=== PATIENT | female | born 1975 | race Caucasian/White ===

== ENCOUNTER 2025-02-25 15:54 | Emergency (ER) | payer OTHER, SELFPAY ==
[2025-02-25 16:08] VITALS: BP 191/117; PULSE 120; RESP 16; TEMP 36.2; O2SAT 100; BMI 39.5
--- NOTE | 2025-02-25 16:18 | ED_ITS ---
HPI - General Adult General Chief complaint: Extremity Problem Stated complaint: Back pain, Rt hand numbness Time Seen by Provider: 02/25/25 16:18 Source: patient and RN notes reviewed Limitations: no limitations History of Present Illness HPI narrative: 49-year-old female presents complaining of right upper back, shoulder pain. Patient states she was in the bedroom and moved some sheets and blankets quickly with her right arm and had instant pain and spasming to the muscles in her right upper back. She reports having some intermittent tingling which has since resolved. She was concerned of the symptoms and therefore presents immediately to the emergency department. Patient states her son applied icy hot and massaged her back, reporting that this has offered some relief. She denies any fever or chills. No chest pain. It is worse with palpation and movement. History of similar in the past. She denies any direct trauma. She is otherwise feeling well. Related Data Previous Rx's ?Medication ?Instructions ?Recorded lidocaine 4 % topical patch 1 patch topical BID PRN pa in #15 ea 02/25/25 methocarbamol 750 mg tablet 750 mg PO TID PRN muscle s pasm #20 02/25/25 tabs Allergies Allergy/AdvReac Type Severity Reaction Status Date / Time No Known Allergies Allergy Verified 02/25/25 16:13 Review of Systems Review of Systems: Yes all other systems are reviewed and are negative ENT: Denies neck pain Cardiovascular: Cardiovascular: Denies chest pain Gastrointestinal: Gastrointestinal: Denies abdominal pain Musculoskeletal: Musculoskeletal: Reports back pain, Denies neck pain and Reports tingling Neurologic: Reports tingling PMFSH Social History Social History Smoked in Last 30 Days: No Use of substances other than those prescribed or required for medical reasons: No Advance Directives: No Advance Directives Information Provided: No Physical Exam ED Vital Signs: Vital Signs - 24 hr 02/25/25 16:08 02/25/25 17:01 02/25/25 17:47 Temperature 97.1 F Pulse Rate 120 H 120 H 115 H Respiratory Rate 16 16 15 Blood Pressure 191/117 H 168/108 H 152/104 H Pulse Oximetry 100 99 Oxygen Delivery Method Room Air Room Air 02/25/25 18:45 02/25/25 19:05 Temperature 97.8 F 97.8 F Pulse Rate 115 H 107 H Respiratory Rate 14 14 Blood Pressure 156/111 H 159/108 H Pulse Oximetry 100 100 Oxygen Delivery Method Room Air Room Air BMI result Body Mass Index 39.5 Neck Other: No spinous, paraspinous or paravertebral tenderness. There is mild spasming to the right trapezius muscles. Resp Other: Lung sounds clear throughout Cardio Other: regular, tachycardic Back/Spine/Pelvis Other: boot turner is 5/5 bilaterally. Full range of motion of all joints. Negative empty can test on the right. There is mild tenderness and spasm to the right subscapular muscles. Worse with cross-arm and twisting of the upper body. No lesions or rashes. Course Course Course Narrative: 5:00 p.m. at time of discharge, patient reports continued anxiety. She was previously treated with lorazepam and sertraline however has been off these medications for quite some time. In addition she reports that she had been drinking alcohol last evening and has not had much to eat or drink today. She feels as though she could be hungover as well. I have discussed with the patient about symptomatic treatment for her anxiety, she is agreeable to low dose of lorazepam. She has a ride with her. In addition, dose of Toradol for pain management. She is agreeable as well as reassessment. Patient with improvement after medications. Heart rate improved to approximately 105 as well as blood pressure. Patient states she is feeling much better and more relaxed. In addition, patient states she will go home to drink plenty of fluids. patient expresses understanding of all discharge instructions and has no further questions at this time. Medications Administered Discontinued Medications Generic Name Dose Route Start Last Admin Trade Name Chetanq PRN Reason Stop Dose Admin Ketorolac Tromethamine 30 mg 02/25/25 17:03 02/25/25 17:48 Ketorolac Tromethamine 30 Mg/Ml Vial IM 02/25/25 17:04 30 mg ONCE ONE Administration Lorazepam 0.5 mg 02/25/25 17:03 02/25/25 17:48 Lorazepam 0.5 Mg Tablet PO 02/25/25 17:04 0.5 mg ONCE ONE Administration Medical Decision Making Medical Decision Making [facility] Narrative: Given the patient's history and exam findings, consistent with musculoskeletal injury. Discussed possibility of chest x-ray however the patient declined, she is comfortable with symptomatic treatment. Of note, patient has severe anxiety especially when at the hospital. Her blood pressure is elevated at this time. She does not take medication for her blood pressure. Differential Diagnosis Differential Diagnoses: The differential diagnosis associated with the presentation includes Muscle spasm Nerve impingement Muscle strain Disc herniation hypertension Anxiety Dehydration Admission/Observation Consideration of admission/observation: Escalation of care including admission/observation considered Prescription Management I considered prescription management with: Pain Medication Chronic Conditions Patient?s care impacted by: Hypertension Discharge Plan Discharge Clinical Impression: Muscle strain of right upper back Qualifiers: Encounter type: initial encounter Qualified Code(s): S29.012A - Strain of muscle and tendon of back wall of thorax, initial encounter Patient Disposition: Home, Self-Care Instructions: Muscle Strain (ED) Additional Instructions: Rest. Avoid strenuous activity. Warm compresses. Lidocaine patches to the affected area. Robaxin as directed. Follow-up with your primary care provider. Call this week to schedule a follow- up appointment. Return to the emergency department if you have any worsening of symptoms, or any concerns. Get well soon! Prescriptions: New lidocaine 4 % adhesive patch,medicated 1 patch topical BID PRN (Reason: pain) Qty: 15 0RF methocarbamol 750 mg tablet 750 mg PO TID PRN (Reason: muscle spasm) Qty: 20 0RF Referrals: [facility] [place] Family Medicine [Provider Group, Family Practice] Interventions: ED Discharge Assessment Last Done: 02/25/25 19:05 Discharge Date/Time: 02/25/25 19:06 Print Language: Greek
[2025-02-25 16:19] VITALS: BP 170/100; PULSE 96
--- OUTSIDE RECORDS SUMMARY | 2025-02-25 16:56 | XMS_ITS | Clinical Summary ---
Author Organization [facility] Address [address] [place] [address] Care Team Providers Care Street Cleaner Name Role Phone Jose Martin MD Primary Care Provider Allergies No known active allergies Medications sertraline (ZOLOFT) 100 mg tablet TAKE 1 TABLET BY MOUTH EVERY DAY 10/06/2021 Active LORazepam (ATIVAN) 0.5 mg tablet Tapering dose: Take 1 tab daily for 2 weeks, then take 1/2 tab daily for week, then take 1/2 tab every other day for 1 week then stop. 10/01/2021 Active fluocinonide (LIDEX) 0.05 % topical solution Apply once daily to scalp when needed 10/26/2012 Active fluticasone propionate (FLONASE) 50 mcg/actuation nasal spray 2 Sprays by Each Nare route daily. 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 OBI I (cervical intraepithelial neoplasia I) Overview (03/24/2024): 2009 - OBI 1 on pap, confirmed by colpo biopsy 2011 - normal 2012- normal 2013 - normal, with neg hpv Anxiety 01/30/2010 Asthma 05/04/2006 Immunizations Immunization Administration Dates Next Due Influenza Quadravalent, MDCK , 0.5ml, preservative free (Flucelvax) 6mo and older 02/15/2017 Td, Unspecified 02/12/2003 Tdap Tetanus diptheria acell ular pertussis (Boostrix; Adacel) 7yo and older 06/07/2017,11/18/2013 Surgical History Surgery Date Site/Laterality Comments OTHER SURGICAL HISTORY 05/05/2016 PROCEDURE: HISTORICAL D&C Medical History Medical History Date Comments Unspecified asthma(493.90) DX:Un specified asthma(493.90); COMMENT: childhood asthma, episode 02/14/06 Anxiety 01/30/2010 DX:Anxiety Depression 01/30/2010 DX:Depression Chlamydia infection 05/19/2012, 06/2013 DX:Chlamyd ia infection; COMMENT: treated 2012, normal SMITHA after, then reinfected 2013 Tooth decay DX:Tooth decay Obesity (BMI 35.0-39.9 witho ut comorbidity) DX:Obesity (BMI 35.0-39.9 wi thout comorbidity) History of trichomoniasis 2013 DX:His tory of trichomoniasis Family History Medical History Relation Name Comments Lung cancer Father 53 Diabetes Maternal Grandfather Hypertension Maternal Grandfather Hyperlipidemia Paternal Grandfather Lung cancer Paternal Grandfather Other: Emphysema (COPD) Paternal Grandfather Heart attack Paternal Grandmother Hypertension Paternal Grandmother Other: stomach prob. Paternal Grandmother Breast cancer Neg Hx Colon cancer Neg Hx Ovarian cancer Neg Hx Prostate cancer Neg Hx Uterine cancer Neg Hx Relation Name Status Comments Brother Alive Daughter 1 Alive Daughter 2 Alive Father (Age 53) Maternal Grandfather Maternal Grandmother Mother Alive Paternal Grandfather Paternal Grandmother Sister 1 Alive Sister 2 Alive Sister 3 Alive Sister 4 Alive Son Alive Social History Tobacco Use Types Packs/Day Years Used Date Smoking Tobacco: Never Smokeless Tobacco: Never Alcohol Use Standard Drinks/Week Comments No 0 (1 standard drink = 0.6 oz pur e alcohol) Comments Unknown Sex and Gender Information Value Date Recorded Sex Assigned at Not on file Legal Sex Female 11:30 PM EST Gender Identity Not on file Sexual Orientation Not on file Obstetrics History Plan of Treatment Health Maintenance Due Date Last Done Comments Breast Cancer Screening 1975 Colorectal Cancer Screening: Colonoscopy 1975 Hepatitis B Vaccines (1 of 3 - 19+ 3-dose series) 11/15/1994 Pneumococcal Vaccine: Pediatrics (0 to 5 Years) and At-Risk Patients (6 to 49 Years) (1 of 2 - PCV) 11/15/1994 Cervical Cancer Screening: HPV 07/03/2018 07/03/2013 Hepatitis C Screening 03/01/2022 Social Influencers of Health Screening 03/01/2022 Depression Screening 03/29/2024 COVID-19 Vaccine (1 - 2024-2 6 season) 2024 Influenza Vaccine (#1) 2024 02/15/2017 DTaP,Tdap,and Td Vaccines (4 - Td or Tdap) 06/08/2027 06/07/2017, 11/18/2013, 02/12/2003 RSV Immunization Adult Patients (1 - 1-dose 75+ series) 11/15/2050 HIV Screening Completed 01/26/2017 HIB Vaccines Aged Out No longer eligi ble based on patient's age to complete this topic HPV Vaccines Aged Out No longer eligi ble based on patient's age to complete this topic Hepatitis A Vaccines Aged Out No long er eligible based on patient's age to complete this topic IPV Vaccines Aged Out No longer eligi ble based on patient's age to complete this topic MMR Vaccines Aged Out No longer eligi ble based on patient's age to complete this topic Meningococcal ACWY Vaccine Aged Out N o longer eligible based on patient's age to complete this topic Meningococcal B Vaccine Aged Out No l onger eligible based on patient's age to complete this topic RSV Immunization Patients Under 20 months Aged Out No longer eligible b ased on patient's age to complete this topic Varicella Vaccines Aged Out No longer eligible based on patient's age to complete this topic Procedures Procedure Name Priority Date/Time Associated Diagnosis Comments HIV SCREENING Routine 01/26/2017 HPV Routine 07/03/2013 from Last 3 Months or Most Recently Relevant to Health Maintenance Results * HIV Screening (01/26/2017) Pathologist [facility] HIV Screening abstracted Historical Provider HEALTH MAINTENANCE Final Result * Cervical Cancer Screening: HPV (07/03/2013) Pathologist [facility] Cervical Cancer Screening: HPV abstracted, negative Historical Provider HEALTH MAINTENANCE Final Result from Last 3 Months or Most Recently Relevant to Health Maintenance Care Teams Street Cleaner Relationship Specialty Start Date End Date Jose Martin MD [address] [place] [address] PCP - General Internal Medicine 08/19/21
--- OUTSIDE RECORDS SUMMARY | 2025-02-25 16:56 | XMS_ITS | Data Portability ---
Author Organization [facility], [facility] ([facility]) Address [address], [address] [place] [address] Assessment No assessment recorded. Plan of Treatment Reminders Order Date Submit Date Provider Last Modified By Organization Details Last Modified Time Details Appointments None record ed. Lab None record ed. Referral None record ed. Procedures None record ed. Surgeries None record ed. Imaging None record ed. Medication Orders None record ed. Patient TargetsNo targets recorded. Patient InstructionsNo instructions recorded. Reason for Referral None Reported. Medical Equipment None Reported. Medications Name Sig Start Date Stop Date Status Note LastModified by Organization Details LastModified Time amoxicillin 500 mg capsule active Not Available Not Available N ot Available ibuprofen 800 mg tablet active Not Available Not Available No t Available hydrocodone 5 mg-acetaminophe n 325 mg tablet active Not Available Not Availa ble Not Available sertraline 100 mg tablet active Not Available Not Available No t Available acetaminophen 300 mg-codeine 30 mg tablet active Not Available Not Available Not Available doxycycline monohydrate 100 mg tablet active Not Available Not Available No t Available oxycodone-aceta minophen 5 mg-325 mg tablet active Not Available Not Available Not Available oseltamivir 75 mg capsule active Not Available Not Available N ot Available misoprostol 200 mcg tablet active Not Available Not Available N ot Available lorazepam 1 mg tablet active Not Available Not Available Not Available chlorhexidine gluconate 0.12 % mouthwash active Not Available Not Available Not Available Plus (calcium carbonate) 27 mg iron-1 mg tablet active Not Available Not Available Not Available Vitals None Recorded Social History None recorded. Functional Status None recorded. Mental Status None recorded. Family History Nothing Reported. Medical History No medical history recorded. Gynecological HistoryNo gynecological history recorded. Obstetrics History GPAL:G 0 P 0 0 0 0 Past Encounters Encounter ID Performer Location Encounter Start Date Encounter Closed Date Diagnosis/Indication Diagnosis SNOMED-CT Code Diagnosis ICD10 Code Diagnosis IMO Codes Diagnosis Note [id number] Yuriy Mayorga MD [address] [place] [address] 07/13/2017 08:59:34 07/13/2017 08:59:57 Health Concerns Section Related Observation LastModified by Organization Detai ls LastModified Time None Recorded Concern Status LastModified by Organization Details LastModified Time None Recorded Advance Directives Directive None Recorded Payers Insurance Date Sequence Insurance Name Policy Number Policy Batista Covered Member ID Batista Member ID Guarantor Name 06/23/2017 1 [facility] (MEDICAID HMO) [id number] Viky Berg [id number] Viky Berg 07/12/2017 1 [place] Viky Berg [id number] Viky Berg 08/07/2017 1 [facility] - HEALTH NET PLAN (MEDICAID HMO) MELANI Berg [id number] Viky Berg 06/23/2017 1 *SELF PAY* Dalton Berg OBG[facility] Episode No OBEpisode recorded.
[2025-02-25 17:01] VITALS: BP 168/108; PULSE 120; RESP 16
[2025-02-25 17:47] VITALS: BP 152/104; PULSE 115; RESP 15; O2SAT 99
[2025-02-25 18:45] VITALS: BP 156/111; PULSE 115; RESP 14; TEMP 36.6; O2SAT 100
[2025-02-25 19:05] VITALS: BP 159/108; PULSE 107; RESP 14; TEMP 36.6; O2SAT 100
== END 2025-02-25 19:06 | disposition home or self-care (01) ==
PROVIDERS: Emergency Provider Emergency Medicine Emergency Medical Services; PCP Internal Medicine
DX: S29.012A Strain of muscle and tendon of back wall of thorax, initial encounter (principal); X58.XXXA Exposure to other specified factors, initial encounter; Y93.9 Activity, unspecified; Y92.003 Bedroom of unspecified non-institutional (private) residence as the place of occurrence of the external cause
CPT/HCPCS: 96372; 99284; J1885